=== PATIENT | male | born 1975 | race Caucasian/White ===

== ENCOUNTER 2019-11-17 23:35 | Observation (INO) | payer BC ==
[2019-11-17] MEDS ORDERED: Lactated Ringers 1,000 ML IV SCH (23:45)
[2019-11-17] MEDS ORDERED: Sodium Chloride 0.9% 10 ML Syringe FLUSH PRN (23:47)
[2019-11-17] MEDS ORDERED: Metoclopramide 10 MG/2 ML SDV IVPUSH ONE (23:49)
--- NOTE | 2019-11-18 00:14 | EDM.PDOC ---
ED HPI GENERAL MEDICAL PROBLEM - General Chief Complaint: ENT Problem Stated Complaint: [facility] Time Seen by Provider: 11/17/19 23:38 Source of Information: Reports: Patient, EMS, Provider History Limitations: Reports: No Limitations - History of Present Illness INITIAL COMMENTS - FREE TEXT/NARRATIVE: The patient presents from [facility] by [facility]. He says a few hours ago he was at the bar and he took a big bite of a june cheese burger and it got stuck in his esophagus. He said this happened about 3 months ago but he was able to pass it. He went to [facility] and they gave him glucagon and ativan and it did not pass. They called Dr Harris and he accepted the patient. He did want him to come to the ER first. I gave the patient a sip of water and it came right back up. He says he has a little chest pain. He has no other medical problems. Onset: Sudden Duration: Hour(s): Location: Reports: Chest Quality: Reports: Ache Severity: Mild Improves with: Reports: None Worsens with: Reports: None Associated Symptoms: Reports: Chest Pain, Nausea/Vomiting. Denies: Cough, Fever/Chills, Headaches, Shortness of Breath Chest Pain Score (Numeric/FACES): 8 - Related Data Allergies Allergy/AdvReac Type Severity Reaction Status Date / Time celecoxib [From Celebrex] Allergy Hives Verified 11/17/19 23:46 Home Meds: Home Meds Albuterol Sulfate [Proair Digihaler] 2 puff INH Q4HR PRN 11/18/19 [History] Albuterol/Ipratropium [DuoNeb 3.0-0.5 MG/3 ML] 3 ml INH [id number] PRN 11/18/19 [History] Budesonide/Formoterol Fumarate [Budesonide-Formoterol 160-4.5] 2 puff INH BID 11/18/19 [History] Calcium Carbonate/Vitamin D3 [Caltrate 600 + D Soft Chew Tab] 1 tab PO BEDTIME 11/18/19 [History] Cyclobenzaprine HCl 10 mg PO BEDTIME PRN 11/18/19 [History] FLUoxetine [PROzac] 20 mg PO BID 11/18/19 [History] Multivit with Iron,Minerals [Complete Senior] 1 tab PO DAILY 11/18/19 [History] Pantoprazole [ProTONIX] 40 mg PO DAILY 11/18/19 [History] Sennosides/Docusate Sodium [Senna-Docusate Sodium Tablet] 1 tab PO BID 11/18/19 [History] Thiamine [Vitamin B-1] 100 mg PO BEDTIME 11/18/19 [History] Zolpidem [Ambien] 10 mg PO BEDTIME 11/18/19 [History] buPROPion HCL [Wellbutrin Xl] 300 mg PO DAILY 11/18/19 [History] carvediloL [Coreg] 12.5 mg PO BID 11/18/19 [History] hydroCHLOROthiazide [Hydrochlorothiazide] 10 mg PO DAILY 11/18/19 [History] lisinopriL [Lisinopril] 40 mg PO DAILY 11/18/19 [History] Social & Family History - Tobacco Use Smoking Status *Q: Never Smoker ED ROS GENERAL - Review of Systems Review Of Systems: See Below Constitutional: Reports: No Symptoms HEENT: Reports: No Symptoms Respiratory: Reports: No Symptoms Cardiovascular: Reports: Chest Pain Endocrine: Reports: No Symptoms GI/Abdominal: Reports: Nausea, Vomiting. Denies: Abdominal Pain : Reports: No Symptoms Musculoskeletal: Reports: No Symptoms ED EXAM, GI/ABD - Physical Exam Exam: See Below Exam Limited By: No Limitations General Appearance: Alert, No Apparent Distress Ears: Normal External Exam Nose: Normal Inspection Head: Atraumatic, Normocephalic Neck: Normal Inspection Respiratory/Chest: No Respiratory Distress, Lungs Clear, Normal Breath Sounds Cardiovascular: Regular Rate, Rhythm, No Edema, No Murmur GI/Abdominal Exam: Soft, Non-Tender, No Organomegaly, No Mass Back Exam: Normal Inspection Extremities: Normal Inspection EKG INTERPRETATION EKG Date: 11/17/19 Time: 23:57 Rhythm: NSR Rate (Beats/Min): 69 [place]: Normal P-Wave: Present QRS: Normal ST-T: Other (Flipped T wave in lead III) QT: Normal Course - Vital Signs Last Recorded V/S: Last Vital Signs Temp 97.7 F 11/17/19 23:43 Pulse 72 11/17/19 23:43 Resp 16 11/17/19 23:43 BP 160/94 H 11/17/19 23:43 Pulse Ox 97 11/17/19 23:43 - Orders/Labs/Meds Orders: Active Orders 24 hr Category Date Time Status Cardiac Monitoring [RC] . DIRECTED Care 11/17/19 23:47 Active EKG Documentation Completion [RC] STAT Care 11/17/19 23:48 Active Peripheral IV Care [RC] . DIRECTED Care 11/17/19 23:48 Active Chest 2V [CR] Stat Exams 11/17/19 23:48 Taken CORONAVIRUS COVID-19 LEO [MOLEC] Stat Lab 11/18/19 00:19 Received Lactated Ringers [Ringers, Lactated] 1,000 ml Med 11/17/19 23:45 Active IV ASDIRECTED Sodium Chloride 0.9% [Saline Flush] Med 11/17/19 23:47 Active 10 ml FLUSH ASDIRECTED PRN Peripheral IV Insertion Adult [OM.PC] Stat Oth 11/17/19 23:47 Ordered Medication Orders Lactated Ringer's (Ringers, Lactated) 1,000 mls @ 75 mls/hr IV ASDIRECTED SUNNY Last Admin: 11/17/19 23:58 Dose: 75 mls/hr Documented by: YUDI Sodium Chloride (Saline Flush) 10 ml FLUSH ASDIRECTED PRN PRN Reason: Keep Vein Open Last Admin: 11/17/19 23:59 Dose: 10 ml Documented by: YUDI Labs: Laboratory Tests 11/18/19 11/18/19 Range/Units 00:06 00:06 WBC 11.13 H (4.23-9.07) K/mm3 RBC 4.91 (4.63-6.08) M/mm3 Hgb 14.7 (13.7-17.5) gm/dl Hct 43.6 (40.1-51.0) % MCV 88.8 (79.0-92.2) fl MCH 29.9 (25.7-32.2) pg MCHC 33.7 (32.2-35.5) g/dl RDW Std Deviation 41.1 (35.1-43.9) fL Plt Count 278 (163-337) K/mm3 MPV 10.0 (9.4-12.3) fl Neut % (Auto) 58.4 (34.0-67.9) % Lymph % (Auto) 32.5 (21.8-53.1) % [place] % (Auto) 7.4 (5.3-12.2) % Eos % (Auto) 0.9 (0.8-7.0) Baso % (Auto) 0.4 (0.1-1.2) % Neut # (Auto) 6.50 H (1.78-5.38) K/mm3 Lymph # (Auto) 3.62 H (1.32-3.57) K/mm3 [place] # (Auto) 0.82 (0.30-0.82) K/mm3 Eos # (Auto) 0.10 (0.04-0.54) K/mm3 Baso # (Auto) 0.04 (0.01-0.08) K/mm3 Manual Slide Review Normal smear Sodium 139 (136-145) mEq/L Potassium 3.6 (3.5-5.1) mEq/L Chloride 101 (98-107) mEq/L Carbon Dioxide 25 (21-32) mEq/L Anion Gap 16.6 H (5-15) BUN 18 (7-18) mg/dL Creatinine 1.0 (0.7-1.3) mg/dL Est Cr Clr Drug Dosing 101.45 mL/min Estimated GFR (MDRD) > 60 (>60) mL/min BUN/Creatinine Ratio 18.0 (14-18) Glucose 109 H (74-106) mg/dL Calcium 8.7 (8.5-10.1) mg/dL Total Bilirubin 0.3 (0.2-1.0) mg/dL AST 40 H (15-37) U/L ALT 63 (16-63) U/L Alkaline Phosphatase 99 (46-116) U/L Troponin I < 0.017 (0.00-0.056) ng/mL Total Protein 7.7 (6.4-8.2) g/dl Albumin 3.9 (3.4-5.0) g/dl Globulin 3.8 gm/dL Albumin/Globulin Ratio 1.0 (1-2) Meds: Medications Generic Name Dose Route Start Last Admin Trade Name Freq PRN Reason Stop Dose Admin Lactated Ringer's 1,000 mls @ 75 mls/hr 11/17/19 23:45 11/17/19 23:58 Ringers, Lactated IV 75 mls/hr ASDIRECTED SUNNY Administration Sodium Chloride 10 ml 11/17/19 23:47 11/17/19 23:59 Saline Flush FLUSH 10 ml ASDIRECTED PRN Administration Keep Vein Open Discontinued Medications Generic Name Dose Route Start Last Admin Trade Name Aleida PRN Reason Stop Dose Admin Metoclopramide HCl 10 mg 11/17/19 23:49 11/17/19 23:59 Reglan IVPUSH 11/17/19 23:50 10 mg ONETIME ONE Administration - Re-Assessments/Exams Free Text/Narrative Re-Assessment/Exam: 11/18/19 00:14 I ordered an IV LR at 75ml/hr, reglan 10mg IV, EKG, CXR and labs. I updated Dr Harris that he is here and he wanted him observation and he will take him to surgery in the morning. 11/18/19 01:42 His CXR looks good. His EKG shows a NSR with no acute changes. His WBC was slightly elevated. His CMP looks good. His troponin is negative. Departure - Departure Time of Disposition: 01:45 Disposition: Refer to Observation Condition: Good Clinical Impression: Esophageal foreign body Qualifiers: Encounter type: initial encounter Qualified Code(s): T18.108A - Unspecified foreign body in esophagus causing other injury, initial encounter - Discharge Information Sepsis Event Note (ED) - Evaluation Sepsis Screening Result: No Definite Risk - Focused Exam Vital Signs: Vital Signs Temp Pulse Resp BP Pulse Ox 11/17/19 23:43 97.7 F 72 16 160/94 H 97 - My Orders Last 24 Hours: My Active Orders 11/17/19 23:45 Lactated Ringers [Ringers, Lactated] 1,000 ml IV ASDIRECTED 11/17/19 23:47 Cardiac Monitoring [RC] . DIRECTED Sodium Chloride 0.9% [Saline Flush] 10 ml FLUSH ASDIRECTED PRN Peripheral IV Insertion Adult [OM.PC] Stat 11/17/19 23:48 EKG Documentation Completion [RC] STAT Peripheral IV Care [RC] . DIRECTED Chest 2V [CR] Stat 11/18/19 00:19 CORONAVIRUS COVID-19 LEO [MOLEC] Stat - Assessment/Plan Last 24 Hours: My Active Orders 11/17/19 23:45 Lactated Ringers [Ringers, Lactated] 1,000 ml IV ASDIRECTED 11/17/19 23:47 Cardiac Monitoring [RC] . DIRECTED Sodium Chloride 0.9% [Saline Flush] 10 ml FLUSH ASDIRECTED PRN Peripheral IV Insertion Adult [OM.PC] Stat 11/17/19 23:48 EKG Documentation Completion [RC] STAT Peripheral IV Care [RC] . DIRECTED Chest 2V [CR] Stat 11/18/19 00:19 CORONAVIRUS COVID-19 LEO [MOLEC] Stat
[2019-11-18] MEDS ORDERED: HYDROmorphone 0.5 MG/0.5 ML Syringe IVPUSH PRN (02:25)
--- NOTE | 2019-11-18 06:50 | PCM.PREANE ---
Preanesthetic Assessment - Procedure Proposed Procedure: food bolus of upper esophagus - Anesthesia/Transfusion/Family Hx Anesthesia History: Prior Anesthesia Without Reaction Transfusion History: No Prior Transfusion(s) - Review of Systems General: No Symptoms Pulmonary: No Symptoms Cardiovascular: No Symptoms Gastrointestinal: No Symptoms Neurological: No Symptoms Other: Reports: None - Physical Assessment NPO Status Date: 11/17/19 NPO Status Time: 19:00 (foreign body upper esophagus) Vital Signs: Last Vital Signs Temp 97.5 F 11/18/19 02:04 Pulse 66 11/18/19 02:04 Resp 16 11/18/19 02:04 BP 143/111 H 11/18/19 02:04 Pulse Ox 99 11/18/19 02:04 Height: 1.8 m Weight: 131.043 kg ASA Class: 2E Mental Status: Alert & Oriented x3 Airway Class: Mallampati = 3 Dentition: Reports: Normal Dentition, Bridge, Caries Thyro-Mental Finger Breadths: 3 Mouth Opening Finger Breadths: 3 ROM/Head Extension: Limited/Partial Lungs: Clear to Auscultation, Normal Respiratory Effort Cardiovascular: Regular Rate, Regular Rhythm - Lab Values: Laboratory Last Values WBC 11.13 K/mm3 (4.23-9.07) H 11/18/19 00:06 RBC 4.91 M/mm3 (4.63-6.08) 11/18/19 00:06 Hgb 14.7 gm/dl (13.7-17.5) 11/18/19 00:06 Hct 43.6 % (40.1-51.0) 11/18/19 00:06 MCV 88.8 fl (79.0-92.2) 11/18/19 00:06 MCH 29.9 pg (25.7-32.2) 11/18/19 00:06 MCHC 33.7 g/dl (32.2-35.5) 11/18/19 00:06 RDW Std Deviation 41.1 fL (35.1-43.9) 11/18/19 00:06 Plt Count 278 K/mm3 (163-337) 11/18/19 00:06 MPV 10.0 fl (9.4-12.3) 11/18/19 00:06 Neut % (Auto) 58.4 % (34.0-67.9) 11/18/19 00:06 Lymph % (Auto) 32.5 % (21.8-53.1) 11/18/19 00:06 Will % (Auto) 7.4 % (5.3-12.2) 11/18/19 00:06 Eos % (Auto) 0.9 (0.8-7.0) 11/18/19 00:06 Baso % (Auto) 0.4 % (0.1-1.2) 11/18/19 00:06 Neut # (Auto) 6.50 K/mm3 (1.78-5.38) H 11/18/19 00:06 Lymph # (Auto) 3.62 K/mm3 (1.32-3.57) H 11/18/19 00:06 Will # (Auto) 0.82 K/mm3 (0.30-0.82) 11/18/19 00:06 Eos # (Auto) 0.10 K/mm3 (0.04-0.54) 11/18/19 00:06 Baso # (Auto) 0.04 K/mm3 (0.01-0.08) 11/18/19 00:06 Manual Slide Review Normal smear 11/18/19 00:06 Sodium 139 mEq/L (136-145) 11/18/19 00:06 Potassium 3.6 mEq/L (3.5-5.1) 11/18/19 00:06 Chloride 101 mEq/L (98-107) 11/18/19 00:06 Carbon Dioxide 25 mEq/L (21-32) 11/18/19 00:06 Anion Gap 16.6 (5-15) H 11/18/19 00:06 BUN 18 mg/dL (7-18) 11/18/19 00:06 Creatinine 1.0 mg/dL (0.7-1.3) 11/18/19 00:06 Est Cr Clr Drug Dosing 101.45 mL/min 11/18/19 00:06 Estimated GFR (MDRD) > 60 mL/min (>60) 11/18/19 00:06 BUN/Creatinine Ratio 18.0 (14-18) 11/18/19 00:06 Glucose 109 mg/dL (74-106) H 11/18/19 00:06 Calcium 8.7 mg/dL (8.5-10.1) 11/18/19 00:06 Total Bilirubin 0.3 mg/dL (0.2-1.0) 11/18/19 00:06 AST 40 U/L (15-37) H 11/18/19 00:06 ALT 63 U/L (16-63) 11/18/19 00:06 Alkaline Phosphatase 99 U/L (46-116) 11/18/19 00:06 Troponin I < 0.017 ng/mL (0.00-0.056) 11/18/19 00:06 Total Protein 7.7 g/dl (6.4-8.2) 11/18/19 00:06 Albumin 3.9 g/dl (3.4-5.0) 11/18/19 00:06 Globulin 3.8 gm/dL 11/18/19 00:06 Albumin/Globulin Ratio 1.0 (1-2) 11/18/19 00:06 SARS Virus RNA (PCR) Negative (NEGATIVE) 11/18/19 00:19 - Allergies Allergies/Adverse Reactions: Allergies Allergy/AdvReac Type Severity Reaction Status Date / Time celecoxib [From Celebrex] Allergy Hives Verified 11/17/19 23:46 - Acknowledgements Anesthesia Type Planned: General Anesthesia Pt an Appropriate Candidate for the Planned Anesthesia: Yes Alternatives and Risks of Anesthesia Discussed w Pt/Guardian: Yes Pt/Guardian Understands and Agrees with Anesthesia Plan: Yes PreAnesthesia Questionnaire Cardiovascular History: Reports: Hypertension Respiratory History: Reports: Asthma Gastrointestinal History: Reports: Chronic Constipation Psychiatric History: Reports: Depression Endocrine/Metabolic History: Reports: Obesity/BMI 30+ Hematologic History: Reports: B12 Deficiency - Infectious Disease History Infectious Disease History: Reports: Chicken Pox - Past Surgical History HEENT Surgical History: Reports: Tonsillectomy Cardiovascular Surgical History: Reports: None Respiratory Surgical History: Reports: Thoracotomy, Other (See Below) Other Respiratory Surgeries/Procedures: R lung GI Surgical History: Reports: Cholecystectomy, Other (See Below) (Gastric bypass) Endocrine Surgical History: Reports: None Musculoskeletal Surgical History: Reports: Other (See Below) Other Musculoskeletal Surgeries/Procedures:: Right knee meniscus repair - SUBSTANCE USE Smoking Status *Q: Never Smoker Second Hand Smoke Exposure: No Days Per Week of Alcohol Use: 2 Number of Drinks Per Day: 3 Total Drinks Per Week: 6 Date of Last Drink: 11/17/19 Time of Last Drink: 16:00 Recreational Drug Use History: No - HOME MEDS Home Medications: Home Meds Albuterol Sulfate [Proair Digihaler] 2 puff INH Q4HR PRN 11/18/19 [History] Albuterol/Ipratropium [DuoNeb 3.0-0.5 MG/3 ML] 3 ml INH [id number] PRN 11/18/19 [History] Budesonide/Formoterol Fumarate [Budesonide-Formoterol 160-4.5] 2 puff INH BID 11/18/19 [History] Calcium Carbonate/Vitamin D3 [Caltrate 600 + D Soft Chew Tab] 1 tab PO BEDTIME 11/18/19 [History] Cyclobenzaprine HCl 10 mg PO BEDTIME PRN 11/18/19 [History] FLUoxetine [PROzac] 20 mg PO BID 11/18/19 [History] Multivit with Iron,Minerals [Complete Senior] 1 tab PO DAILY 11/18/19 [History] Pantoprazole [ProTONIX] 40 mg PO DAILY 11/18/19 [History] Sennosides/Docusate Sodium [Senna-Docusate Sodium Tablet] 1 tab PO BID 11/18/19 [History] Thiamine [Vitamin B-1] 100 mg PO BEDTIME 11/18/19 [History] Zolpidem [Ambien] 10 mg PO BEDTIME PRN 11/18/19 [History] buPROPion HCL [Wellbutrin Xl] 300 mg PO DAILY 11/18/19 [History] carvediloL [Coreg] 12.5 mg PO BID 11/18/19 [History] hydroCHLOROthiazide [Hydrochlorothiazide] 10 mg PO DAILY 11/18/19 [History] lisinopriL [Lisinopril] 40 mg PO DAILY 11/18/19 [History] - CURRENT (IN HOUSE) MEDS Current Meds: Current Medications Hydromorphone HCl (Dilaudid) 0.5 mg IVPUSH Q2H PRN PRN Reason: Pain Lactated Ringer's (Ringers, Lactated) 1,000 mls @ 75 mls/hr IV ASDIRECTED SUNNY Last Admin: 11/17/19 23:58 Dose: 75 mls/hr Documented by: Sodium Chloride (Saline Flush) 10 ml FLUSH ASDIRECTED PRN PRN Reason: Keep Vein Open Last Admin: 11/17/19 23:59 Dose: 10 ml Documented by: Discontinued Medications Metoclopramide HCl (Reglan) 10 mg IVPUSH ONETIME ONE Stop: 11/17/19 23:50 Last Admin: 11/17/19 23:59 Dose: 10 mg Documented by:
[2019-11-18] MEDS ORDERED: Propofol 200 MG/20 ML SDV ONE (06:55)
[2019-11-18] MEDS ORDERED: Succinylcholine/Sod PF 100 MG/5 ML SYRINGE IV ONE (06:56)
[2019-11-18] MEDS ORDERED: fentaNYL 100 MCG/2 ML SDV ONE (06:56)
[2019-11-18] MEDS ORDERED: Lidocaine 1% 2 ML SDV ONE (06:56)
[2019-11-18] MEDS ORDERED: Midazolam 1 MG/ML 2 ML SDV ONE (06:56)
--- NOTE | 2019-11-18 06:57 | PCM.HP.2 ---
H&P History of Present Illness - General Date of Service: 11/18/19 Admit Problem/Dx: Admission Diagnosis/Problem Admission Diagnosis/Problem Foreign body in digestive tract Source of Information: Patient History Limitations: Reports: No Limitations - History of Present Illness Initial Comments - Free Text/Narative: Patient has a history of gastric bypass 6 yrs ago who was eating and had a piece of food, june, stuck in his throat. This happened around 7p on 11/16. He could not swallow anything after that. Attempts to vomit failed. He went to [place] ED where ativan and glucagon were given but the patient failed to pass the bolus. I discussed with the provider at [place] and the patient was transferred here. In the ED at [facility], he still was not able to swallow water and we made a decision to offer him an EGD with disimpaction. Otherwise the patient denies any chest pain, neck pain or any other issues. Patient has had another episode of difficult swallowing 2 months ago but resolved spontaneously. Onset of Symptoms: Reports: Sudden Duration of Symptoms: Reports: Hour(s): (12) Location: Reports: Other (throat) Quality: Reports: Other Severity: Severe Improves with: Reports: None Worsens with: Reports: None Context: Reports: Other (eating) Associated Symptoms: Reports: Other (unable to swallow) Chest Pain Score (Numeric/FACES): 8 - Related Data Allergies/Adverse Reactions: Allergies Allergy/AdvReac Type Severity Reaction Status Date / Time celecoxib [From Celebrex] Allergy Hives Verified 11/17/19 23:46 Home Medications: Home Meds Albuterol Sulfate [Proair Digihaler] 2 puff INH Q4HR PRN 11/18/19 [History] Albuterol/Ipratropium [DuoNeb 3.0-0.5 MG/3 ML] 3 ml INH [id number] PRN 11/18/19 [History] Budesonide/Formoterol Fumarate [Budesonide-Formoterol 160-4.5] 2 puff INH BID 11/18/19 [History] Calcium Carbonate/Vitamin D3 [Caltrate 600 + D Soft Chew Tab] 1 tab PO BEDTIME 11/18/19 [History] Cyclobenzaprine HCl 10 mg PO BEDTIME PRN 11/18/19 [History] FLUoxetine [PROzac] 20 mg PO BID 11/18/19 [History] Multivit with Iron,Minerals [Complete Senior] 1 tab PO DAILY 11/18/19 [History] Pantoprazole [ProTONIX] 40 mg PO DAILY 11/18/19 [History] Sennosides/Docusate Sodium [Senna-Docusate Sodium Tablet] 1 tab PO BID 11/18/19 [History] Thiamine [Vitamin B-1] 100 mg PO BEDTIME 11/18/19 [History] Zolpidem [Ambien] 10 mg PO BEDTIME PRN 11/18/19 [History] buPROPion HCL [Wellbutrin Xl] 300 mg PO DAILY 11/18/19 [History] carvediloL [Coreg] 12.5 mg PO BID 11/18/19 [History] hydroCHLOROthiazide [Hydrochlorothiazide] 10 mg PO DAILY 11/18/19 [History] lisinopriL [Lisinopril] 40 mg PO DAILY 11/18/19 [History] Past Medical History Cardiovascular History: Reports: Hypertension Respiratory History: Reports: Asthma Gastrointestinal History: Reports: Chronic Constipation Psychiatric History: Reports: Depression Endocrine/Metabolic History: Reports: Obesity/BMI 30+ Hematologic History: Reports: B12 Deficiency - Infectious Disease History Infectious Disease History: Reports: Chicken Pox - Past Surgical History HEENT Surgical History: Reports: Tonsillectomy Cardiovascular Surgical History: Reports: None Respiratory Surgical History: Reports: Thoracotomy, Other (See Below) Other Respiratory Surgeries/Procedures: R lung GI Surgical History: Reports: Cholecystectomy, Other (See Below) (Gastric bypass) Endocrine Surgical History: Reports: None Musculoskeletal Surgical History: Reports: Other (See Below) Other Musculoskeletal Surgeries/Procedures:: Right knee meniscus repair Social & Family History - Family History Family Medical History: Noncontributory - Tobacco Use Smoking Status *Q: Never Smoker Second Hand Smoke Exposure: No - Caffeine Use Caffeine Use: Reports: None - Alcohol Use Days Per Week of Alcohol Use: 2 Number of Drinks Per Day: 3 Total Drinks Per Week: 6 Date of Last Drink: 11/17/19 Time of Last Drink: 16:00 - Recreational Drug Use Recreational Drug Use: No H&P Review of Systems - Review of Systems: Review Of Systems: See Below General: Reports: No Symptoms HEENT: Reports: No Symptoms Pulmonary: Reports: No Symptoms Cardiovascular: Reports: No Symptoms Gastrointestinal: Reports: Difficulty Swallowing Genitourinary: Reports: No Symptoms Musculoskeletal: Reports: No Symptoms Skin: Reports: No Symptoms Psychiatric: Reports: No Symptoms Neurological: Reports: No Symptoms Exam - Exam Exam: See Below - Vital Signs Vital Signs: Last Vital Signs Temp 97.5 F 11/18/19 02:04 Pulse 66 11/18/19 02:04 Resp 16 11/18/19 02:04 BP 143/111 H 11/18/19 02:04 Pulse Ox 99 11/18/19 02:04 Weight: 131.043 kg - Exam General: Alert, Oriented, Cooperative HEENT: Other (no neck or chest crepitus, no pain) Lungs: Clear to Auscultation, Normal Respiratory Effort Cardiovascular: Regular Rate, Regular Rhythm, Normal S1, Normal S2 GI/Abdominal Exam: Soft, Non-Tender, No Organomegaly, No Distention, No Abnormal Bruit - Patient Data Lab Results Last 24 hrs: Laboratory Results - last 24 hr 11/18/19 11/18/19 11/18/19 Range/Units 00:06 00:06 00:19 WBC 11.13 H (4.23-9.07) K/mm3 RBC 4.91 (4.63-6.08) M/mm3 Hgb 14.7 (13.7-17.5) gm/dl Hct 43.6 (40.1-51.0) % MCV 88.8 (79.0-92.2) fl MCH 29.9 (25.7-32.2) pg MCHC 33.7 (32.2-35.5) g/dl RDW Std Deviation 41.1 (35.1-43.9) fL Plt Count 278 (163-337) K/mm3 MPV 10.0 (9.4-12.3) fl Neut % (Auto) 58.4 (34.0-67.9) % Lymph % (Auto) 32.5 (21.8-53.1) % [place] % (Auto) 7.4 (5.3-12.2) % Eos % (Auto) 0.9 (0.8-7.0) Baso % (Auto) 0.4 (0.1-1.2) % Neut # (Auto) 6.50 H (1.78-5.38) K/mm3 Lymph # (Auto) 3.62 H (1.32-3.57) K/mm3 [place] # (Auto) 0.82 (0.30-0.82) K/mm3 Eos # (Auto) 0.10 (0.04-0.54) K/mm3 Baso # (Auto) 0.04 (0.01-0.08) K/mm3 Manual Slide Review Normal smear Sodium 139 (136-145) mEq/L Potassium 3.6 (3.5-5.1) mEq/L Chloride 101 (98-107) mEq/L Carbon Dioxide 25 (21-32) mEq/L Anion Gap 16.6 H (5-15) BUN 18 (7-18) mg/dL Creatinine 1.0 (0.7-1.3) mg/dL Est Cr Clr Drug Dosing 101.45 mL/min Estimated GFR (MDRD) > 60 (>60) mL/min BUN/Creatinine Ratio 18.0 (14-18) Glucose 109 H (74-106) mg/dL Calcium 8.7 (8.5-10.1) mg/dL Total Bilirubin 0.3 (0.2-1.0) mg/dL AST 40 H (15-37) U/L ALT 63 (16-63) U/L Alkaline Phosphatase 99 (46-116) U/L Troponin I < 0.017 (0.00-0.056) ng/mL Total Protein 7.7 (6.4-8.2) g/dl Albumin 3.9 (3.4-5.0) g/dl Globulin 3.8 gm/dL Albumin/Globulin Ratio 1.0 (1-2) SARS Virus RNA (PCR) Negative (NEGATIVE) Result Diagrams: 11/18/19 00:06 11/18/19 00:06 Sepsis Event Note - Evaluation Sepsis Screening Result: No Definite Risk - Focused Exam Vital Signs: Vital Signs Temp Temp Pulse Pulse Resp BP BP 11/18/19 02:04 97.5 F 66 16 143/111 H 11/17/19 23:43 97.7 F 72 16 160/94 H Pulse Ox 11/18/19 02:04 99 11/17/19 23:43 97 Problem List Initiated/Reviewed/Updated: No Orders Last 24hrs: Active Orders 24 hr Category Date Time Status Patient Status [ADT] Routine ADT 11/18/19 01:00 Active Activity as Tolerated [RC] BID Care 11/18/19 02:24 Active Oxygen Therapy Adult [Oxygen Therapy] [RC] ASDIRECTED Care 11/18/19 02:40 Active NPO Now [Nothing per Oral Now Diet] [DIET] Diet 11/18/19 Breakfast Active Chest 2V [CR] Stat Exams 11/17/19 23:48 Taken HYDROmorphone [Dilaudid] Med 11/18/19 02:25 Active 0.5 mg IVPUSH Q2H PRN Lactated Ringers [Ringers, Lactated] 1,000 ml Med 11/17/19 23:45 Active IV ASDIRECTED Sodium Chloride 0.9% [Saline Flush] Med 11/17/19 23:47 Active 10 ml FLUSH ASDIRECTED PRN Peripheral IV Insertion Adult [OM.PC] Stat Oth 11/17/19 23:47 Ordered Schedule Procedure [COMM] Routine Oth 11/18/19 05:25 Ordered Code Status [Resuscitation Status] Routine Resus Stat 11/18/19 02:25 Ordered Medication Orders Hydromorphone HCl (Dilaudid) 0.5 mg IVPUSH Q2H PRN PRN Reason: Pain Lactated Ringer's (Ringers, Lactated) 1,000 mls @ 75 mls/hr IV ASDIRECTED SUNNY Last Admin: 11/17/19 23:58 Dose: 75 mls/hr Documented by: YUDI Sodium Chloride (Saline Flush) 10 ml FLUSH ASDIRECTED PRN PRN Reason: Keep Vein Open Last Admin: 11/17/19 23:59 Dose: 10 ml Documented by: YUDI Assessment/Plan Comment:: Patient has esophageal impaction. I recommended we proceed with EGD, disimpaction, possible dilation. We discussed risks, benefits and alternatives. Perforation and bleeding were specifically discussed. Patient agreed to proceed and informed consent was obtained.
[2019-11-18] MEDS ORDERED: Ondansetron 4 MG/2 ML SDV ONE (07:25)
[2019-11-18] MEDS ORDERED: ePHEDrine Sulfate/0.9% NaCl/Pf 25 MG/5 ML SYRINGE IV ONE (07:42)
--- NOTE | 2019-11-18 08:38 | PCM.POSTAN ---
POST ANESTHESIA ASSESSMENT - MENTAL STATUS Mental Status: Alert, Oriented - VITAL SIGNS Vital Signs: Last Vital Signs Temp 97.8 F 11/18/19 08:31 Pulse 66 11/18/19 02:04 Resp 24 H 11/18/19 08:31 BP 123/59 L 11/18/19 08:31 Pulse Ox 96 11/18/19 08:31 - RESPIRATORY Respiratory Status: Respiratory Rate WNL, Airway Patent, O2 Saturation Stable, Supplemental Oxygen - CARDIOVASCULAR CV Status: Pulse Rate WNL, Blood Pressure Stable - GASTROINTESTINAL GI Status: No Symptoms - PAIN Pain Score: 0 - POST OP HYDRATION Hydration Status: Adequate & Stable
--- NOTE | 2019-11-18 09:48 | PCM48HPAN ---
Post Anesthesia Note - EVALUATION WITHIN 48HRS OF ANESTHETIC Vital Signs in Normal Range: Yes Patient Participated in Evaluation: Yes Respiratory Function Stable: Yes Airway Patent: Yes Cardiovascular Function Stable: Yes Hydration Status Stable: Yes Pain Control Satisfactory: Yes Nausea and Vomiting Control Satisfactory: Yes Mental Status Recovered: Yes Vital Signs: Last Vital Signs Temp 36.8 C 11/18/19 09:00 Pulse 66 11/18/19 02:04 Resp 20 11/18/19 09:00 BP 132/86 11/18/19 09:00 Pulse Ox 91 L 11/18/19 09:00
--- NOTE | 2019-11-18 11:02 | CR ---
Chest: 2 views of the chest were obtained. Comparison: No prior chest imaging is available. Previous partial rib resection is noted within the right upper chest with mild associated parenchymal scarring. Lungs otherwise are clear. Heart size and mediastinum are normal. Slight scoliosis and degenerative change is partially visualized within the spine. Impression: 1. Findings as noted above. 2. Nothing acute is appreciated. Diagnostic code #2 This report was dictated in MDT
--- NOTE | 2019-11-18 18:05 | PROC ---
DATE OF OPERATION: 11/18/2019 SURGEON: Rmaon Harris MD PREOPERATIVE DIAGNOSIS: Esophageal food impaction. POSTOPERATIVE DIAGNOSIS: Esophageal food impaction. PROCEDURE: Esophagogastroduodenoscopy with disimpaction and dilation. FINDINGS: 1. There was food bolus in the upper esophagus. 2. Tortuous esophagus. 3. 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 ESTIMATED BLOOD LOSS: None. COMPLICATION: None. INDICATION AND CONSENT: Mr. Sharpe is a 44-year-old male who was eating dinner on 11/17/2019 at 7 p.m. and swallowed a piece of june that he was not able to swallow. The patient had trouble swallowing anything after that including water. However, the patient was able to keep his saliva to a minimum or able to swallow most of it. He went to the emergency department in [place], where he was given Ativan and glucagon without any relief of symptoms. The physician at [place] talked to me and we decided to transfer the patient here for EGD. The patient was transferred to [place] overnight. He did not have any improvement of symptoms. I saw him in the morning. He confirmed the symptoms of dysphagia and unable to swallow anything and I offered him an EGD with disimpaction, possible dilation. 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 He has been doing well since. We discussed risks, benefits, and alternatives including perforation and bleeding. The patient agreed to proceed with the procedure. Informed consent was obtained. DETAILS OF THE PROCEDURE: The patient was taken to the procedure room, placed in supine position, and then general endotracheal anesthesia was induced and then the patient's position was turned into left lateral decubitus position. Then, the scope was inserted into the mouth and into the esophagus. At about 17 cm, we found a foreign body that was lodged in the esophagus. Attempts to push the foreign body down failed. We attempted to use the [place] Net to retrieve the foreign body and this failed. We attempted to use pronged forceps to retrieve the foreign body, this failed. Then, we passed down a pneumatic balloon that was 10, 11, 12 mm, insufflated it below the foreign body and dislodged the foreign body this way. Once this was done, the rest of the foreign body was retrieved from the mouth with the finger and it appeared to be consistent with a long piece of june. Then, the scope was passed down again into the esophagus. There was no other foreign body and taken all the way. Stomach pouch appeared to be up almost into the lower chest. The gastrojejunal anastomosis was visualized and was normal. Both pancreaticobiliary limb as well as alimentary limb were viewed and appeared to be normal. The scope was withdrawn back into the pouch. Any air was suctioned out and esophagus was again examined. There were no areas of injury. At the area of the stricture, which is about 17 cm from the incisors, there were no injuries. The esophagus as mentioned earlier was tortuous and this area of impaction appeared to be mildly stenotic, but mostly tortuous. A 12 mm pneumatic balloon was passed into this area and this area was dilated to 12 mm with this pneumatic balloon. Then, the balloon was taken down and then air was suctioned out and the scope was removed. This marked the end of the procedure. At the end of the procedure, there was no complication. The patient was taken to recovery area. The patient to be allowed to recover and then have a challenge of food to eat or drink. Once he passes the drink challenge, the patient can be discharged home. The patient to follow up with his primary care doctor in 2 weeks. ZOEY /[id number] JOSEPH
--- NOTE | 2019-11-21 11:35 | PCM.DCSUM1 ---
Discharge Summary - Hospital Course Free Text/Narrative:: Patient swallowed a piece of june that got dislodged in the upper esophagus. This was successfully removed with endoscopy. Patient did well post procedure and was discharged home. Diagnosis: Stroke: No - Discharge Data Discharge Date: 11/18/19 Discharge Disposition: Home, Self-Care 01 Condition: Good - Referral to Home Health Primary Care Physician: PCP Not In Area - Patient Instructions Diet: Regular Diet as Tolerated Activity: As Tolerated Driving: Do Not Drive (until 24 hurs post anesthesia) Showering/Bathing: May Shower Notify Provider of: Fever, Increased Pain - Discharge Plan *PRESCRIPTION DRUG MONITORING PROGRAM REVIEWED*: Not Applicable *COPY OF PRESCRIPTION DRUG MONITORING REPORT IN PATIENT KEVON: Not Applicable Home Medications: Home Meds Albuterol Sulfate [Proair Digihaler] 2 puff INH Q4HR PRN 11/18/19 [History] Albuterol/Ipratropium [DuoNeb 3.0-0.5 MG/3 ML] 3 ml INH [id number] PRN 11/18/19 [History] Budesonide/Formoterol Fumarate [Budesonide-Formoterol 160-4.5] 2 puff INH BID 11/18/19 [History] Calcium Carbonate/Vitamin D3 [Caltrate 600 + D Soft Chew Tab] 1 tab PO BEDTIME 11/18/19 [History] Cyclobenzaprine HCl 10 mg PO BEDTIME PRN 11/18/19 [History] FLUoxetine [PROzac] 20 mg PO BID 11/18/19 [History] Multivit with Iron,Minerals [Complete Senior] 1 tab PO DAILY 11/18/19 [History] Pantoprazole [ProTONIX] 40 mg PO DAILY 11/18/19 [History] Sennosides/Docusate Sodium [Senna-Docusate Sodium Tablet] 1 tab PO BID 11/18/19 [History] Thiamine [Vitamin B-1] 100 mg PO BEDTIME 11/18/19 [History] Zolpidem [Ambien] 10 mg PO BEDTIME PRN 11/18/19 [History] buPROPion HCL [Wellbutrin Xl] 300 mg PO DAILY 11/18/19 [History] carvediloL [Coreg] 12.5 mg PO BID 11/18/19 [History] hydroCHLOROthiazide [Hydrochlorothiazide] 10 mg PO DAILY 11/18/19 [History] lisinopriL [Lisinopril] 40 mg PO DAILY 11/18/19 [History] Oxygen Therapy Mode: Room Air Patient Handouts: Swallowed Foreign Body, Adult, [id number] Referrals: Skylar Blanco MD [Ordering Only Provider] - 12/01/19 9:40 am (Please follow up with Dr. Blanco on November 30 at .:) - Discharge Summary/Plan Comment DC Time >30 min.: No - General Info Date of Service: 11/18/19 Subjective Update: doing well minimal throat pain tolerated fluid Functional Status: Reports: Pain Controlled, Tolerating Diet, Ambulating, Urinating - Review of Systems General: Reports: No Symptoms, Night Sweats Pulmonary: Reports: No Symptoms Cardiovascular: Reports: No Symptoms Gastrointestinal: Reports: No Symptoms Genitourinary: Reports: No Symptoms Musculoskeletal: Reports: No Symptoms Skin: Reports: No Symptoms Neurological: Reports: No Symptoms - Patient Data Vitals - Most Recent: Last Vital Signs Temp 98.3 F 11/18/19 09:00 Pulse 78 11/18/19 10:31 Resp 20 11/18/19 09:00 BP 134/86 11/18/19 10:31 Pulse Ox 98 11/18/19 10:31 Weight - Most Recent: 131.043 kg Med Orders - Current: Current Medications Discontinued Medications Ephedrine Sulfate (Ephedrine 25 Mg/5 Ml Syringe) Confirm Administered Dose 25 mg IV .STK-MED ONE Stop: 11/18/19 07:43 Fentanyl (Sublimaze) Confirm Administered Dose 100 mcg .ROUTE .STK-MED ONE Stop: 11/18/19 06:57 Hydromorphone HCl (Dilaudid) 0.5 mg IVPUSH Q2H PRN PRN Reason: Pain Lactated Ringer's (Ringers, Lactated) 1,000 mls @ 75 mls/hr IV ASDIRECTED [facility] Last Admin: 11/17/19 23:58 Dose: 75 mls/hr Documented by: Lidocaine HCl (Lidocaine 1%) Confirm Administered Dose 4 ml .ROUTE .STK-MED ONE Stop: 11/18/19 06:57 Metoclopramide HCl (Reglan) 10 mg IVPUSH ONETIME ONE Stop: 11/17/19 23:50 Last Admin: 11/17/19 23:59 Dose: 10 mg Documented by: Midazolam HCl (Versed 1 Mg/Ml) Confirm Administered Dose 4 mg .ROUTE .STK-MED ONE Stop: 11/18/19 06:57 Ondansetron HCl (Zofran) Confirm Administered Dose 8 mg .ROUTE .STK-MED ONE Stop: 11/18/19 07:26 Propofol (Diprivan 20 Ml) Confirm Administered Dose 400 mg .ROUTE .STK-MED ONE Stop: 11/18/19 06:56 Sodium Chloride (Saline Flush) 10 ml FLUSH ASDIRECTED PRN PRN Reason: Keep Vein Open Last Admin: 11/17/19 23:59 Dose: 10 ml Documented by: - Exam General: Reports: Alert, Oriented Neck: Reports: Supple, Other (no crepitus) Lungs: Reports: Clear to Auscultation, Normal Respiratory Effort Cardiovascular: Reports: Regular Rate, Regular Rhythm, No Murmurs GI/Abdominal Exam: Soft, Non-Tender, No Organomegaly, No Distention, No Abnormal Bruit
== END 2019-11-18 12:23 | disposition home or self-care (01) ==
LOC: JD.ED 23:35 → JD.MS 11-18 01:00
PROVIDERS: ADMIT Surgery; ATTEND Surgery
DX: K22.2 Esophageal obstruction (principal); T18.128A Food in esophagus causing other injury, initial encounter; K22.8 Other specified diseases of esophagus; I10 Essential (primary) hypertension; F32.9 Major depressive disorder, single episode, unspecified; E66.9 Obesity, unspecified; J45.909 Unspecified asthma, uncomplicated; Z88.8 Allergy status to other drugs, medicaments and biological substances; Z79.899 Other long term (current) drug therapy; Z68.41 Body mass index [BMI] 40.0-44.9, adult; Z98.0 Intestinal bypass and anastomosis status; Z01.812 Encounter for preprocedural laboratory examination; Z20.828 Contact with and (suspected) exposure to other viral communicable diseases
CPT/HCPCS: 36415; 43249; 71046; 80053; 84484; 85025; 87635; 93005; J0171; J0330; J2001; J2250; J2405; J2704; J2765; J3010; J7120; U0002